=== PATIENT | female | born 1940 | race Caucasian/White ===

== ENCOUNTER → 2017-08-09 | Outpatient (CLI) | payer MEDICARE ==
[~2017-08-09] MED LIST: ACID1TAB3 PO; ATOR20TA PO; CHOL10002 PO; FERR325T18 PO; HYDR25TA6 PO; LEVO250T23 PO; LISI-167 PO; MEGE400O2 PO; METR500T PO
== END | disposition home or self-care (01) ==
LOC: CFH 10:08
PROVIDERS: ATTEND Nurse Practitioner
DX: Z13.820 Encounter for screening for osteoporosis (principal); M85.88 Other specified disorders of bone density and structure, other site; N95.8 Other specified menopausal and perimenopausal disorders
CPT/HCPCS: 77080

== ENCOUNTER 2018-10-24 23:19 | Inpatient (IN) | payer MEDICARE ==
[~2018-10-24] VITALS: Ht 152.4 cm; Wt 52.0 kg
--- NOTE | 2018-10-24 23:37 | NUR ---
PT STATES SHE DRANK 2 LARGES GLASSES OF VODKA THIS EVENING AND SLID OUT OF BED. PT DENIES PAIN AT THIS TIME. PRESENTS WITH ABBRASION TO NOSE. PT ALSO HAS LEFT KNEE REDNESS, SWELLING AND SKIN FLAKING.
--- NOTE | 2018-10-25 00:02 | NUR ---
PT RESTING IN ROOM. ERGULAR RESP. NO ACUTE DISTRESS NOTED. CALL LIGHT IN PLACE. WILL CONTNIUE TO MONITOR.
[2018-10-25] MEDS ORDERED: DIPH,PERTUSS(ACELL),TET VAC/PF 0.5 ML IM-VACC ONE ×2 (00:30→00:53)
[2018-10-25 00:40] LABS: BASOPHILS # (AUTO) 0.03 x10^3/uL (0-0.1); BASOPHILS % (AUTO) 0 % (0-1); EOSINOPHILS # (AUTO) 0.02 x10^3/uL (0-0.4); EOSINOPHILS % (AUTO) 0 % (1-7); LYMPHOCYTES # (AUTO) 2.45 x10^3/uL (1-3.4); LYMPHOCYTES % (AUTO) 34 % (22-44); MD NO; MEAN CORPUSCULAR HEMOGLOBIN 33.2 pg (27.0-34.8); MEAN CORPUSCULAR HGB CONC 33.9 g/dL (32.4-35.8); MEAN CORPUSCULAR VOLUME 97.8 fL (80-100); MEAN PLATELET VOLUME 7.3 fL (7.4-10.4); MONOCYTES % (AUTO) 7 % (2-9); NEUTROPHILS # (AUTO) 4.21 x10^3/uL (1.8-6.8); NEUTROPHILS % (AUTO) 58 % (42-75); PLATELET COUNT 215 x10^3/uL (130-400); RED BLOOD COUNT 3.82 x10^6/uL (3.82-5.3); RED CELL DISTRIBUTION WIDTH 14.4 % (9.6-15.2)
[2018-10-25 00:49] LABS: ALBUMIN 3.7 g/dL (3.4-5.0); ANION GAP 11 mmol/L (5-15); CALCIUM 9.8 mg/dL (8.5-10.1); CHLORIDE 114 mmol/L (98-107)
--- NOTE | 2018-10-25 00:49 | NUR ---
PT USED THE BATHROOM. NO ACUTE DISTRESS NOTED. VS STABLE. WILL CONTINUE OT MONITOR.
[2018-10-25 00:52] LABS: ALANINE AMINOTRANSFERASE 24 U/L (12-78); ALKALINE PHOSPHATASE 76 U/L (45-117); BILIRUBIN,TOTAL 0.2 mg/dL (0.2-1.0); CREATININE 1.74 mg/dL (0.55-1.02); TOTAL PROTEIN 7.2 g/dL (6.4-8.2)
--- NOTE | 2018-10-25 01:45 | NUR ---
CALLED EPS LEFT A MESSAGE TO CALL BACK
--- NOTE | 2018-10-25 02:18 | NUR ---
PT TRANSFERRED FROM ED ROOM 22 TO ED ROOM 38, RESTING ON GURNEY, NAD, MONITORS APPLIED, SIDERAILS UP X2, CALL LIGHT WITHIN REACH. CALLED FOR HOSPITAL BED. PT AWARE OF NEED FOR URINE SAMPLE, UNABLE TO VOID AT THIS TIME
--- NOTE | 2018-10-25 02:20 | NUR ---
REPORT GIVEN TO MEREDITH MALCOLM
[2018-10-25] MEDS ORDERED: LORazepam 1MG TABLET PO PRN ×2 (03:00)
[2018-10-25] MEDS ORDERED: ACETAMINOPHEN 325 MG TABLET PO PRN (03:00)
[2018-10-25] MEDS ORDERED: LORazepam 0.5MG TABLET PO PRN (03:00)
--- NOTE | 2018-10-25 03:00 | NUR ---
PT TRANSFERRED FROM [facility] TO HOSPITAL BED, PT STATED " I DID NOT DRINK ANY ALCOHOL, MY GRANDSON JUST CALLED THE AMBULANCE BECUASE HE WANTS MY HOUSE". PT NOW RESTING IN BED, MONITORS I PLACE, SIDERAILS UP X2, CALL LIGHT WITHIN REACH
[2018-10-25] MEDS ORDERED: CEFTRIAXONE PMX 1GM/50ML 50 ML ONE (03:22)
[2018-10-25] MEDS ORDERED: HEPARIN 5,000 UNITS/ML, 1ML ONE (03:22)
[2018-10-25 03:26] LABS: THYROID STIMULATING HORMONE 2.22 mIU/L (0.358-3.740)
[2018-10-25] MEDS: CEFTRIAXONE PMX 1GM/50ML 50 ML IV SCH (03:38)
[2018-10-25] MEDS: HEPARIN 5,000 UNITS/ML, 1ML SQ SCH ×3 (03:44→20:59)
--- NOTE | 2018-10-25 03:53 | NUR ---
IV SITE STARTED, PT MEDICATED PER OCT, IV ABX INFUSING. ASSISTED PT ONTO BEDPAIN, URINE SAMPLE COLLECTED AND TAKEN TO LAB. PT RESTING IN BED, MONITORS IN PLACE, SIDERAILS UP X2, CALL LIGHT WITHIN REACH.
[2018-10-25 04:04] LABS: MICROSCOPIC AUTO
[2018-10-25 04:05] LABS: CULTURE INDICATED? YES
[2018-10-25] MEDS: POTASSIUM CHLORIDE 10 MEQ, MVI ADULT 10 ML, FOLIC ACID 1 MG, MAGNESIUM SULFATE 1 GM in ... IV SCH (04:18)
--- NOTE | 2018-10-25 05:15 | NUR ---
ASSISTED PT ONTO BEDPAN, PT NOW RESTING IN BED, DENIES FURTHER NEEDS, MONITORS IN PLACE, CALL LIGHT WITHIN REACH. PT REMAINS MEDICAL FLOOR HOLD
--- NOTE | 2018-10-25 06:35 | NUR ---
ASSISTED PT ONTO BEDPAN, PT DENIES FURTHER NEEDS, MONITORS IN PLACE, CALL LIGHT WITHIN REACH.
--- NOTE | 2018-10-25 07:01 | NUR ---
REPORT GIVEN TO MEREDITH MARROQUIN
[2018-10-25] MEDS ORDERED: THIAMINE 100MG TABLET ONE (07:33)
[2018-10-25] MEDS: THIAMINE 100MG TABLET PO SCH (07:59)
--- NOTE | 2018-10-25 08:05 | NUR ---
PT ASSISTED TO BEDPAN, NO ACUTE S/S OF DISTRESS. DISCUSSED POC WITH PT WHOM VERBALIZES UNDERSTANDING. DENIES FURTHER NEEDS AT THIS TIME
--- NOTE | 2018-10-25 08:25 | NUR ---
PT PROVIDED WITH MEAL TRAY, DENIES FURTHER NEEDS AT THIS TIME
--- NOTE | 2018-10-25 08:28 | NUR ---
JOHN DAUGHTER [phone]
--- NOTE | 2018-10-25 08:30 | NUR ---
DISCUSSED POC WITH JOHN DAUGHTER. OK PER PT. DAUGHTER PLANS TO VISIT LATER IN AFTERNOON
--- NOTE | 2018-10-25 11:38 | NUR ---
SBAR TO MAKAYLA HARPER VIA TELEPHONE
[2018-10-25] MEDS ORDERED: LIDOCAINE-MPF 1%, 5ML ONE (13:11)
[2018-10-25 13:34] VITALS: BP 122/76
[2018-10-25 14:14] VITALS: BP 122/76
[2018-10-25] MEDS: LACTATED RINGERS 1,000 ML IV SCH (14:31)
[2018-10-25] MEDS ORDERED: DONE10TA14 PO (16:23)
[2018-10-25] MEDS ORDERED: LISI-167 PO (16:23)
[2018-10-25] MEDS ORDERED: HYDR25TA6 PO (16:23)
[2018-10-25] MEDS ORDERED: MEMA10TA PO (16:23)
[2018-10-25 17:01] LABS: SYN CELLS COUNTED 205
[2018-10-25 18:42] VITALS: BP 129/84
[2018-10-25] MEDS: DONEPEZIL 10 MG TABLET PO SCH (20:59)
[2018-10-25] MEDS: MEMANTINE 10MG TABLET PO SCH (21:55)
[2018-10-26 00:56] VITALS: BP 132/78
[2018-10-26] MEDS: CEFTRIAXONE PMX 1GM/50ML 50 ML IV SCH (02:59)
[2018-10-26] MEDS: POTASSIUM CHLORIDE 10 MEQ, MVI ADULT 10 ML, FOLIC ACID 1 MG, MAGNESIUM SULFATE 1 GM in ... IV SCH (03:39)
[2018-10-26] MEDS: HEPARIN 5,000 UNITS/ML, 1ML SQ SCH ×3 (05:32→21:14)
[2018-10-26 05:46] LABS: BASOPHILS # (AUTO) 0.02 x10^3/uL (0-0.1); BASOPHILS % (AUTO) 1 % (0-1); EOSINOPHILS # (AUTO) 0.06 x10^3/uL (0-0.4); EOSINOPHILS % (AUTO) 1 % (1-7); LYMPHOCYTES # (AUTO) 1.52 x10^3/uL (1-3.4); LYMPHOCYTES % (AUTO) 34 % (22-44); MD NO; MEAN CORPUSCULAR HEMOGLOBIN 33.7 pg (27.0-34.8); MEAN CORPUSCULAR HGB CONC 34.5 g/dL (32.4-35.8); MEAN CORPUSCULAR VOLUME 97.9 fL (80-100); MEAN PLATELET VOLUME 7.5 fL (7.4-10.4); MONOCYTES # (AUTO) 0.36 x10^3/uL (0.2-0.8); MONOCYTES % (AUTO) 8 % (2-9); NEUTROPHILS # (AUTO) 2.54 x10^3/uL (1.8-6.8); NEUTROPHILS % (AUTO) 57 % (42-75); PLATELET COUNT 192 x10^3/uL (130-400); RED CELL DISTRIBUTION WIDTH 14.4 % (9.6-15.2)
[2018-10-26 05:48] LABS: ANION GAP 6 mmol/L (5-15); CALCIUM 8.6 mg/dL (8.5-10.1); CHLORIDE 115 mmol/L (98-107)
[2018-10-26 05:51] LABS: CREATININE 0.94 mg/dL (0.55-1.02)
[2018-10-26 08:00] VITALS: BP 128/75
[2018-10-26] MEDS: HYDROCHLOROTHIAZIDE 25 MG TABLET PO SCH (08:34)
[2018-10-26] MEDS: THIAMINE 100MG TABLET PO SCH (08:34)
[2018-10-26] MEDS: MEMANTINE 10MG TABLET PO SCH ×2 (08:34→21:14)
[2018-10-26] MEDS: LISINOPRIL 10 MG TABLET PO SCH (08:34)
[2018-10-26] MEDS ORDERED: THIAMINE 100 MG in DEXTROSE 5% 50 ML IVPB SCH (09:00)
[2018-10-26] MEDS: LACTATED RINGERS 1,000 ML IV SCH (14:00)
[2018-10-26 14:57] VITALS: BP 117/74
[2018-10-26 18:43] VITALS: BP 127/81
[2018-10-26] MEDS: DONEPEZIL 10 MG TABLET PO SCH (21:14)
[2018-10-27] MEDS: CEFTRIAXONE PMX 1GM/50ML 50 ML IV SCH (02:38)
[2018-10-27 02:46] VITALS: BP 104/69
[2018-10-27] MEDS: POTASSIUM CHLORIDE 10 MEQ, MVI ADULT 10 ML, FOLIC ACID 1 MG, MAGNESIUM SULFATE 1 GM in ... IV SCH (03:25)
[2018-10-27] MEDS: HEPARIN 5,000 UNITS/ML, 1ML SQ SCH ×3 (05:41→21:32)
[2018-10-27 07:50] VITALS: BP 124/83
[2018-10-27] MEDS: MEMANTINE 10MG TABLET PO SCH ×2 (08:57→21:33)
[2018-10-27] MEDS: THIAMINE 100MG TABLET PO SCH (08:57)
[2018-10-27] MEDS: HYDROCHLOROTHIAZIDE 25 MG TABLET PO SCH (08:57)
[2018-10-27] MEDS: LISINOPRIL 10 MG TABLET PO SCH (08:58)
[2018-10-27] MEDS: LACTATED RINGERS 1,000 ML IV SCH ×2 (09:52→16:37)
[2018-10-27 13:13] VITALS: BP 128/72
[2018-10-27 18:44] VITALS: BP 118/70
[2018-10-27] MEDS: DONEPEZIL 10 MG TABLET PO SCH (21:32)
[2018-10-27 23:36] VITALS: BP 108/68
[2018-10-28] MEDS: CEFTRIAXONE PMX 1GM/50ML 50 ML IV SCH (02:32)
[2018-10-28] MEDS: POTASSIUM CHLORIDE 10 MEQ, MVI ADULT 10 ML, FOLIC ACID 1 MG, MAGNESIUM SULFATE 1 GM in ... IV SCH (03:33)
[2018-10-28] MEDS: HEPARIN 5,000 UNITS/ML, 1ML SQ SCH ×2 (06:16→14:27)
[2018-10-28 07:27] VITALS: BP 102/65
[2018-10-28 08:22] VITALS: BP 112/68
[2018-10-28] MEDS: THIAMINE 100MG TABLET PO SCH (08:24)
[2018-10-28] MEDS: LISINOPRIL 10 MG TABLET PO SCH (08:24)
[2018-10-28] MEDS: HYDROCHLOROTHIAZIDE 25 MG TABLET PO SCH (08:24)
[2018-10-28] MEDS: MEMANTINE 10MG TABLET PO SCH (08:24)
[2018-10-28] MEDS ORDERED: CEFD300C37 PO (12:09)
[2018-10-28] MEDS ORDERED: MULT1TAB60 PO (12:09)
[2018-10-28] MEDS ORDERED: THIA100T67 PO (12:09)
[2018-10-28 12:25] VITALS: BP 106/66
== END 2018-10-28 15:50 | disposition home health service (06) | DRG 564 ==
LOC: ED 23:48 → EDIP 10-25 01:28 → 4NOR 10-25 12:45 → OBSVTOIN 10-27 12:25 → DCLOUNGE 10-28 15:20
PROVIDERS: ADMIT Internal Medicine; ATTEND Internal Medicine
PROC: 0S9D3ZX Drainage of Left Knee Joint, Percutaneous Approach, Diagnostic (ICD-10-PCS; principal; 2018-10-25)
DX: M25.462 Effusion, left knee (principal); N17.0 Acute kidney failure with tubular necrosis; E44.0 Moderate protein-calorie malnutrition; E87.2 Acidosis; F03.90 Unspecified dementia, unspecified severity, without behavioral disturbance, psychotic disturbance, mood disturbance, and anxiety; E86.0 Dehydration; F10.229 Alcohol dependence with intoxication, unspecified; I10 Essential (primary) hypertension; W01.0XXA Fall on same level from slipping, tripping and stumbling without subsequent striking against object, initial encounter; Y92.009 Unspecified place in unspecified non-institutional (private) residence as the place of occurrence of the external cause; S00.31XA Abrasion of nose, initial encounter; Z80.9 Family history of malignant neoplasm, unspecified; Z82.0 Family history of epilepsy and other diseases of the nervous system; Z90.710 Acquired absence of both cervix and uterus; Z96.651 Presence of right artificial knee joint; Z88.6 Allergy status to analgesic agent; Z88.8 Allergy status to other drugs, medicaments and biological substances
CPT/HCPCS: 20606; 20611; 36415; 71045; 80048; 80053; 80307; 81001; 83735; 84100; 84443; 85025; 85810; 87070; 87075; 87086; 87205; 89050; 89060; 90715; 93005; 99285; G0378; J0696; J1644; J3475; J3480; J7042; J7120